=== PATIENT | female | born 1955 | race Caucasian/White ===

== ENCOUNTER 2018-01-11 10:31 | Emergency (ER) | END 2018-01-11 12:14 | disposition home or self-care (01) ==

== ENCOUNTER 2018-01-12 06:55 | Emergency (ER) | END 2018-01-12 08:03 | disposition home or self-care (01) ==

== ENCOUNTER 2018-01-12 23:26 | Emergency (ER) | END 2018-01-13 02:04 | disposition home or self-care (01) ==

== ENCOUNTER 2018-04-27 06:42 | Day surgery (SDC) | payer OTHER ==
[~2018-04-27] VITALS: Ht 157.5 cm; Wt 73.7 kg
[~2018-04-27 06:42] MED LIST: BEN25 PO; HC30CR25 TOP; HYDR-842 PO; IBUP-1561 PO; LORA1TAB PO
[2018-04-27] MEDS ORDERED: CERTRIZINE (08:10)
[2018-04-27] MEDS ORDERED: ATORVASTATIN (08:10)
[2018-04-27 08:15] VITALS: Ht 157.5 cm; Wt 73.7 kg
[2018-04-27 08:16] VITALS: BP 140/72; PULSE 75; RESP 14
[2018-04-27] MEDS ORDERED: FENTAnyl 50 MCG/ML VIAL ONE (08:52)
[2018-04-27] MEDS ORDERED: MIDAZOLAM 1 MG/ML 2 ML INJ ONE ×2 (08:52)
[2018-04-27 09:10] VITALS: BP 99/71; RESP 15
== END 2018-04-27 11:43 | disposition home or self-care (01) ==
LOC: GIL 06:42
PROVIDERS: ATTEND Internal Medicine Gastroenterology
DX: Z12.11 Encounter for screening for malignant neoplasm of colon (principal); K64.0 First degree hemorrhoids
CPT/HCPCS: 45378; J2250; J3010; Z7610

== ENCOUNTER 2018-05-30 12:16 | Emergency (ER) | payer SELFPAY ==
[~2018-05-30] VITALS: Ht 167.6 cm; Wt 75.6 kg
[~2018-05-30 12:16] MED LIST changes: +ATORVASTATIN; -BEN25 PO; +CERTRIZINE; -HC30CR25 TOP; -HYDR-842 PO
[2018-05-30 13:13] VITALS: BP 112/57; PULSE 72; RESP 18; Ht 167.6 cm; Wt 75.6 kg
[2018-05-31] MEDS ORDERED: CYCL10TA7 PO (09:16)
[2018-05-31] MEDS ORDERED: NAPR-985 PO (09:16)
[2018-05-31] MEDS ORDERED: HYDR-4011 PO (09:16)
== END 2018-05-30 15:20 | disposition left against medical advice (07) ==
LOC: FTE 12:16
DX: Z53.21 Procedure and treatment not carried out due to patient leaving prior to being seen by health care provider (principal)

== ENCOUNTER 2018-05-31 07:46 | Emergency (ER) | payer OTHER ==
[~2018-05-31] VITALS: Wt 76.0 kg
[2018-05-31 07:48] VITALS: BP 150/78; PULSE 92; RESP 18
[2018-05-31] MEDS ORDERED: CYCL10TA7 PO (09:16)
[2018-05-31] MEDS ORDERED: HYDR-4011 PO (09:16)
[2018-05-31] MEDS ORDERED: NAPR-985 PO (09:16)
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
== END 2018-05-31 09:27 | disposition home or self-care (01) ==
LOC: FTE 07:46
DX: M19.90 Unspecified osteoarthritis, unspecified site (principal)
CPT/HCPCS: 72040; Z7502

== ENCOUNTER 2018-06-07 06:14 | Emergency (ER) | payer OTHER ==
[~2018-06-07] VITALS: Ht 160 cm; Wt 74.0 kg
[~2018-06-07 06:14] MED LIST changes: +CYCL10TA7 PO; +HYDR-4011 PO; +NAPR-985 PO
[2018-06-07 06:17] VITALS: Ht 160 cm; Wt 74.0 kg
[2018-06-07] MEDS ORDERED: TRAM50TA2 PO (08:35)
[2018-06-07] MEDS ORDERED: NAPR-985 PO (08:35)
[2018-06-07] MEDS ORDERED: ONDA4TAB14 PO (08:35)
[2018-06-07] MEDS ORDERED: DICL100G37 TOP (08:35)
--- NOTE | 2018-06-07 08:43 | ERD ---
ER Documentation Chief Complaint Chief Complaint L knee pain after injection site HPI 62-year-old female presenting with left knee pain. Patient states that she has had a chronic problem with her left knee and she is been seen by Dr. Eid. She has been receiving gentle injections to her left knee and had her last injection 1 week ago. She said some pain at the injection site which has since resolved however has continued pain in the knee space. Her pain is with movement. Patient has taken no pain medication today. Denies fevers. Denies swelling or redness to the knee. Denies any recent falls or injuries. Denies other medical problems. NKDA. Surgical history denies. Social history denies. ROS All systems reviewed and are negative except as per history of present illness. Medications Home Meds Active Scripts Diclofenac Sodium* (Voltaren* Gel) 1% -100 Gm Gel, 2 GM TOP QID, #1 TUB Prov:URIAH MOORE PA-C 06/07/18 Naproxen* (Naprosyn*) 500 Mg Tablet, 500 MG PO BID PRN for PAIN AND/OR INFLAMMATION, #30 TAB Prov:URIAH MOORE PA-C 06/07/18 Ondansetron (Ondansetron Odt) 4 Mg Tab.rapdis, 4 MG PO Q6H PRN for NAUSEA AND/OR VOMITING, #10 TAB Prov:URIAH MOORE PA-C 06/07/18 Tramadol HCl (Tramadol HCl) 50 Mg Tablet, 50 MG PO Q4 PRN for PAIN, #20 TAB Prov:URIAH MOORE PA-C 06/07/18 Cyclobenzaprine Hcl* (Cyclobenzaprine Hcl*) 10 Mg Tablet, 10 MG PO TID, #15 TAB Prov:URIAH MOORE PA-C 05/31/18 Naproxen* (Naprosyn*) 500 Mg Tablet, 500 MG PO BID PRN for PAIN AND/OR INFLAMMATION, #30 TAB Prov:URIAH MOORE PA-C 05/31/18 Hydrocodone/Acetaminophen ([place] 5-325 Tablet) 1 Each Tablet, 1 TAB PO Q6H PRN for PAIN, #7 TAB Prov:URIAH MOORE PA-C 05/31/18 Lorazepam* (Lorazepam*) 1 Mg Tablet, 1 MG PO Q8H PRN for ANXIETY, #10 TAB Prov:IZABELLA RYDER MD 01/13/18 Ibuprofen* (Motrin*) 400 Mg Tab, 400 MG PO Q6H PRN for PAIN, #20 TAB Prov:LUIS HAINES MD 04/02/15 Reported Medications [Certrizine] No Conflict Check 04/27/18 [Atorvastatin] No Conflict Check 04/27/18 Allergies Allergies: Coded Allergies: No Known Allergy (Unverified , 04/27/18) PMhx/Soc History of Surgery: No Anesthesia Reaction: No Hx Neurological Disorder: No Hx Respiratory Disorders: No Hx Cardiac Disorders: No Hx Psychiatric Problems: No Hx Miscellaneous Medical Probl: No Hx Alcohol Use: No Hx Substance Use: No Hx Tobacco Use: No Smoking Status: Never smoker FmHx Family History: No diabetes, No coronary disease, No other Physical Exam Vitals Vital Signs Date Temp Pulse Resp B/P (MAP) Pulse Ox O2 O2 Flow FiO2 Time Delivery Rate 06/07/18 98.1 80 16 159/73 100 06:17 (101) Physical Exam GENERAL: The patient is well-appearing, well-nourished, in no acute distress CHEST: Clear to auscultation bilaterally. There are no rales, wheezes or rhonchi. HEART: Regular rate and rhythm. No murmurs, clicks, rubs or gallops. EXTREMITIES: Pain with flexion and extension of the left knee. No valgus or varus deformity. Strength 5 out of 5. No erythema or swelling noted to the knee. NEUROLOGIC: Alert and oriented. Cranial nerves II through XII intact. Motor strength in all 4 extremities with 5 out of 5 strength. Sensation grossly intact. Normal speech and gait. SKIN: There is no apparent rash or petechiae. The skin is warm and dry. Procedures/MDM DIAGNOSTIC IMAGING REPORT Patient: ERIS MCCRARY : 1955 Age: 62 Sex: F MR #: [id number] DOS: 06/07/18 0703 Ordering MD: KIARRA MOORE PA-C Location: [facility] Room/Bed: PROCEDURE: US Lower extremity venous. CLINICAL INDICATION: Left lower extremity pain TECHNIQUE: Multiple sonographic images of the left lower extremity deep venous system obtained utilizing grayscale, color-flow, compressive sonography and dop pler imaging with augmentation. The images were reviewed on a PACS workstation. COMPARISON: None. FINDINGS: There is normal compressibility and flow within the left common femoral, deep femoral, superficial femoral, posterior tibial and popliteal veins. IMPRESSION: No sonographic evidence for deep venous thrombosis. DIAGNOSTIC IMAGING REPORT Patient: ERIS MCCRARY : 1955 Age: 62 Sex: F MR #: [id number] DOS: 06/07/18 0703 Ordering MD: KIARRA MOORE PA-C Location: [facility] Room/Bed: PROCEDURE: Left knee radiographs. CLINICAL INDICATION: Left knee pain. TECHNIQUE: Three views. Frontal, lateral, and oblique. COMPARISON: No prior studies are available for comparison. FINDINGS: There is no fracture or dislocation. The soft tissues are normal. Articular surfaces are intact. There is no lytic or blastic lesion. There is no radiopaque foreign body. IMPRESSION: 1. Normal images of the left knee. ER Course: Knee immobilizer and crutches given ED. MDM: 62-year-old female presenting with left knee pain. I have low suspicion for septic joint. I have low suspicion for vascular or muscular injury. I have low suspicion for bony injury. Patient likely has arthritic changes or meniscus injury. Patient is recommended to follow-up with today for close evaluation. Patient is discharged with strict ER precautions. All questions answered at discharge Departure Diagnosis: Primary Impression: Knee pain Condition: Stable Patient Instructions: Knee Pain, Uncertain Cause Referrals: [facility] (PCP) Additional Instructions: FOLLOW UP WITH YOUR PRIMARY CARE PHYSICIAN TOMORROW.Return to this facility if you are not improving as expected. URIAH MOORE PA-C Jun 07, 2018 08:43
== END 2018-06-07 08:50 | disposition home or self-care (01) ==
LOC: FTE 06:14
DX: M25.562 Pain in left knee (principal)
CPT/HCPCS: 29505; 73562; 93971; Z7502; Z7610